=== PATIENT | male | born 1950 | race Caucasian/White ===

== ENCOUNTER 2017-04-28 13:30 | Emergency (ER) | payer BC, OTHER ==
--- NOTE | 2017-04-28 14:09 | EDM.PDOC ---
ED HPI GENERAL MEDICAL PROBLEM - General Chief Complaint: General Stated Complaint: FALL Time Seen by Provider: 04/28/17 14:02 Source of Information: Reports: Patient History Limitations: Reports: No Limitations - History of Present Illness INITIAL COMMENTS - FREE TEXT/NARRATIVE: History of present illness: 66-year-old male presenting status post mechanical fall. Patient indicates he was stepping up onto a curb and miscalculated last night after late meeting. EKG is probably too tired and just didn't see the height of the curb tripped and had blunt force trauma to his left side of head, predominantly at the brow bone, left shoulder, as well as the left hip. Review of systems: As per history of present illness and below otherwise all systems reviewed and negative. Past medical history: As per history of present illness and as reviewed below otherwise noncontributory. Surgical history: As per history of present illness and as reviewed below otherwise noncontributory. Social history: No reported history of drug or alcohol abuse. Family history: As per history of present illness and as reviewed below otherwise noncontributory. Physical exam: HEENT: Circumorbital ecchymosis with a laceration to left eyebrow with a blood clot. Laceration approximately 2 cm unable to determine secondary to oversized blood clot. Due to age of laceration and artery well established clot will allow to heal without intervention. normocephalic, pupils reactive, negative for conjunctival pallor or scleral icterus, mucous membranes moist, throat clear , neck supple, nontender, trachea midline. Lungs: Clear to auscultation, breath sounds equal bilaterally, chest nontender. Heart: S1S2, regular, negative for clicks, rubs, or JVD. Abdomen: Soft, nondistended, nontender. Negative for masses or hepatosplenomegaly. Negative for costovertebral tenderness. Pelvis: Stable nontender. Genitourinary: Deferred. Rectal: Deferred. Extremities: Atraumatic, negative for cords or calf pain. Neurovascular unremarkable. Neuro: Awake, alert, oriented. Cranial nerves II through XII unremarkable. Cerebellum unremarkable. Motor and sensory unremarkable throughout. Exam nonfocal. Radiographic studies all negative for acute trauma Diagnostics: [CT of head, x-ray of left shoulder and left hip] Therapeutics: [] Impression: [Contusion, bruising] Plan: [Follow-up with PCP alternate ice and heat] Definitive disposition and diagnosis as appropriate pending reevaluation and review of above. left shoulder Pain Score (Numeric/FACES): 8 left face Pain Score (Numeric/FACES): 5 - Related Data Allergies Allergy/AdvReac Type Severity Reaction Status Date / Time No Known Allergies Allergy Verified 04/28/17 14:02 Home Meds: Home Meds Budesonide/Formoterol [Symbicort 160-4.5 Mcg Inhaler] 10.2 gm IH BID 12/04/14 [ History] Past Medical History HEENT History: Reports: Allergic Rhinitis Respiratory History: Reports: Asthma Gastrointestinal History: Reports: None - Infectious Disease History Infectious Disease History: Reports: Shingles - Past Surgical History GI Surgical History: Reports: Hernia, Abdominal Social & Family History - Family History Family Medical History: Noncontributory - Tobacco Use Smoking Status *Q: Never Smoker Second Hand Smoke Exposure: No - Caffeine Use Caffeine Use: Reports: Coffee Other Caffeine Use: 2 cups per day - Alcohol Use Days Per Week of Alcohol Use: 0 - Recreational Drug Use Recreational Drug Use: No ED ROS GENERAL - Review of Systems Review Of Systems: See Below (The history of present illness) ED EXAM, GENERAL - Physical Exam Exam: See Below (See history of present illness) Course - Vital Signs Last Recorded V/S: Last Vital Signs Temp 36.6 C 04/28/17 14:00 Pulse 113 H 04/28/17 14:00 Resp 18 04/28/17 14:00 BP 177/98 H 04/28/17 14:00 Pulse Ox 95 04/28/17 14:00 - Orders/Labs/Meds Orders: Active Orders 24 hr Category Date Time Status Head wo Cont [CT] Stat Exams 04/28/17 14:02 Taken Hip Min 2V or 3V w Pelvis Lt [CR] Stat Exams 04/28/17 14:02 Taken Shoulder Comp Lt [CR] Stat Exams 04/28/17 14:02 Taken Departure - Departure Time of Disposition: 15:17 Disposition: Home, Self-Care 01 Condition: Good Clinical Impression: Contusion of eye, Contusion - Discharge Information Additional Instructions: The following information is given to patients seen in the emergency department who are being discharged to home. This information is to outline your options for follow-up care. We provide all patients seen in our emergency department with a follow-up referral. The need for follow-up, as well as the timing and circumstances, are variable depending upon the specifics of your emergency department visit. If you don't have a primary care physician on staff, we will provide you with a referral. We always advise you to contact your personal physician following an emergency department visit to inform them of the circumstance of the visit and for follow-up with them and/or the need for any referrals to a consulting specialist. The emergency department will also refer you to a specialist when appropriate. This referral assures that you have the opportunity for follow-up care with a specialist. All of these measure are taken in an effort to provide you with optimal care, which includes your follow-up. Under all circumstances we always encourage you to contact your private physician who remains a resource for coordinating your care. When calling for follow-up care, please make the office aware that this follow-up is from your recent emergency room visit. If for any reason you are refused follow-up, please contact the [facility] Emergency Department at and asked to speak to the emergency department charge nurse. Take medication as directed May alternate ice and heat to sore areas Ice specifically to eye Follow-up with PCP 1-2 days Return to ED as needed as discussed - My Orders Last 24 Hours: My Active Orders 04/28/17 14:02 Head wo Cont [CT] Stat Hip Min 2V or 3V w Pelvis Lt [CR] Stat Shoulder Comp Lt [CR] Stat - Assessment/Plan Last 24 Hours: My Active Orders 04/28/17 14:02 Head wo Cont [CT] Stat Hip Min 2V or 3V w Pelvis Lt [CR] Stat Shoulder Comp Lt [CR] Stat
[2017-04-28 16:28] VITALS: BP 169/90
--- NOTE | 2017-04-30 10:41 | CT ---
EXAM DATE: 04/28/17 PATIENT'S AGE: 66 Patient: CRYSTAL BARLOW Facility: [place], [place] Site . Site : 1950 Study: CT Head WO CONT [id number]/5/[id number] 2:42:04 PM Ordering Physician: Doctor Polanco Final Report: HISTORY: Fall. Technique: Unenhanced head CT with coronal and sagittal reformations. Comparison: None. Findings: There is no intracranial hemorrhage. No edema is seen. The ventricles are normal in size and position. The mart-white matter differentiation is normal. Air-fluid level is seen in the right maxillary sinus. There is mucous membrane thickening and possible small amount of fluid in the left maxillary sinus. Soft tissue opacification is seen in multiple ethmoid air cells and the sphenoid. Frontal sinuses are normally aerated. No fracture is identified. Impression: 1. Negative unenhanced CT of the brain. 2. There is an air-fluid level in the right maxillary sinus and possibly small amount of fluid in the left. Fluid density is also seen in ethmoid and sphenoid sinuses. This could be related to trauma with hemorrhage although sinusitis is possible. No fracture is seen. Please note that all CT scans at this facility use dose modulation, iterative reconstruction, and/or weight-based dosing when appropriate to reduce radiation dose to as low as reasonably achievable. Dictated by Patrick Lewis MD @ Apr 28 2017 2:56PM (Electronic Signature) Report Signed by Proxy. JOELLE
--- NOTE | 2017-04-30 10:42 | CR ---
EXAM DATE: 04/28/17 PATIENT'S AGE: 66 Patient: CRYSTAL BARLOW Facility: [place], [place] Site . Site : 1950 Study: XRay Shoulder [id number]/5/2017 2:51:19 PM Ordering Physician: Doctor Polanco Final Report: HISTORY: Fall. Technique: Two views left shoulder. Comparison: None. Findings: There is no acute fracture. The acromioclavicular and glenohumeral joints are maintained. Impression: Negative exam of the left shoulder. Dictated by Patrick Lewis MD @ Apr 28 2017 3:03PM (Electronic Signature) Report Signed by Proxy. JOELLE
--- NOTE | 2017-04-30 10:43 | CR ---
EXAM DATE: 04/28/17 PATIENT'S AGE: 66 Patient: CRYSTAL BARLOW Facility: [place], [place] Site . Site : 1950 Study: XRay Hip w/ pelvis [id number]/5/2017 2:51:50 PM Ordering Physician: Doctor Polanco Final Report: HISTORY: Fall. Technique: AP pelvis with AP and frog-leg lateral left hip. Comparison: None. Findings: No acute pelvic or hip fracture is seen. Hip mild degenerative change is seen in the right hip. The left hip joint is preserved. SI joints are unremarkable. Symphysis pubis is maintained. Impression: No acute pelvic or left hip fracture. Dictated by Patrick Lewis MD @ Apr 28 2017 3:07PM (Electronic Signature) Report Signed by Proxy. JOELLE
== END 2017-04-28 15:38 | disposition home or self-care (01) ==
LOC: MW.ED 13:30
DX: S01.112A Laceration without foreign body of left eyelid and periocular area, initial encounter (principal); S40.012A Contusion of left shoulder, initial encounter; J45.909 Unspecified asthma, uncomplicated; W19.XXXA Unspecified fall, initial encounter
CPT/HCPCS: 70450; 70450-26; 73030-26-LT; 73030-LT; 73502-26-LT; 73502-LT; 99282; 99284-25

== ENCOUNTER 2020-07-30 10:22 | Emergency (ER) | payer MEDICARE, BC ==
[2020-07-30] MEDS ORDERED: LORazepam 2 MG/ML SDV IVPUSH ONE (10:23)
[2020-07-30] MEDS ORDERED: Sodium Chloride 0.9% 2.5 ML Syringe FLUSH PRN (10:23)
[2020-07-30] MEDS ORDERED: Sodium Chloride 0.9% 10 ML Syringe FLUSH PRN (10:23)
[2020-07-30] MEDS ORDERED: Sodium Chloride 0.9% 1,000 ML IV ONE (10:23)
--- NOTE | 2020-07-30 10:30 | EDM.PDOC ---
ED HPI GENERAL MEDICAL PROBLEM - General Chief Complaint: Respiratory Problem Stated Complaint: EMS ARRIVAL Time Seen by Provider: 07/30/20 10:23 Source of Information: Reports: Patient, EMS History Limitations: Reports: No Limitations - History of Present Illness INITIAL COMMENTS - FREE TEXT/NARRATIVE: History of present illness: [Patient is 70-year-old male who was tested positive for Covid 2 days ago, he has had symptoms now for about 3 days. States that this morning he had worsening shortness of breath and noticed that he was hypertensive at home. He has a history of COPD and hypertension. He denies chest pain. He has been using Mucinex and Tylenol and other oxvs-npl-gnhkkue remedies to help with his symptoms at home. Denies vomiting or diarrhea. Denies blurry vision or headache. No other complaints at this time. Review of systems: As per history of present illness and below otherwise all systems reviewed and negative. Past medical history: As per history of present illness and as reviewed below otherwise noncontributory. Surgical history: As per history of present illness and as reviewed below otherwise noncontributory. Social history: No reported history of drug or alcohol abuse. Family history: As per history of present illness and as reviewed below otherwise noncontributory. Physical exam: General: Awake, alert, anxious, A&O X3. HEENT: Atraumatic, normocephalic, pupils reactive, negative for conjunctival pallor or scleral icterus, mucous membranes moist, throat clear, neck supple, nontender, trachea midline. Lungs: Clear to auscultation, breath sounds equal bilaterally, chest nontender. tachypneic Heart: RRR, normal S1S2, no JVD. Abdomen: Soft, nondistended, nontender. Negative for masses or hepatosplenomegaly. Negative for costovertebral tenderness. Pelvis: Stable nontender. Genitourinary: Deferred. Rectal: Deferred. Extremities: Atraumatic, no edema, Neurovascular unremarkable. Neuro: Motor and sensory grossly intact throughout. Exam nonfocal. Diagnostics: [] Therapeutics: [] Impression: [] Plan: [] Definitive disposition and diagnosis as appropriate pending reevaluation and review of above. - Related Data Allergies Allergy/AdvReac Type Severity Reaction Status Date / Time No Known Allergies Allergy Verified 07/30/20 10:55 Home Meds: Home Meds Budesonide/Formoterol [Symbicort 160-4.5 Mcg Inhaler] 10.2 gm IH BID 12/04/14 [History] Anti Htn 07/30/20 [History] Past Medical History - Past Health History Medical/Surgical History: Denies Medical/Surgical History HEENT History: Reports: Allergic Rhinitis Respiratory History: Reports: Asthma Gastrointestinal History: Reports: None - Infectious Disease History Infectious Disease History: Reports: Shingles - Past Surgical History GI Surgical History: Reports: Hernia, Abdominal Social & Family History - Family History Family Medical History: Noncontributory - Caffeine Use Caffeine Use: Reports: Coffee Other Caffeine Use: 2 cups per day ED ROS GENERAL - Review of Systems Review Of Systems: Comprehensive ROS is negative, except as noted in HPI. ED EXAM, GENERAL - Physical Exam Exam: See Below (see h and p) #1 Interpretation EKG Date: 07/30/20 Time: 10:36 Rhythm: NSR Rate (Beats/Min): 78 Buckner: Normal P-Wave: Present QRS: Normal ST-T: Normal QT: Normal EKG Interpretation Comments: normal sinus Course - Vital Signs Text/Narrative:: Patient is feeling much better after getting some IV fluids along with a small dose of Ativan. On reevaluation he is breathing comfortably, not tachypneic, not hypoxic, chest x-ray is reassuring, labs are also reassuring, vital signs are stable. I believe he is appropriate for continued outpatient management of his previously diagnosed Covid. He has not required any supplemental oxygen here in the ED. Return precautions provided otherwise he was stable and well-appearing at discharge. Last Recorded V/S: Last Vital Signs Temp 35.6 C L 07/30/20 12:32 Pulse 87 07/30/20 12:32 Resp 16 07/30/20 12:32 BP 152/80 H 07/30/20 12:32 Pulse Ox 95 07/30/20 12:32 - Orders/Labs/Meds Orders: Active Orders 24 hr Category Date Time Status Saline Lock Insert [OM.PC] Stat Oth 07/30/20 10:23 Ordered Labs: Laboratory Tests 07/30/20 07/30/20 Range/Units 10:29 10:29 WBC 5.80 (4.0-11.0) K/uL RBC 5.50 (4.50-5.90) M/uL Hgb 17.6 H (13.0-17.0) g/dL Hct 50.9 H (38.0-50.0) % MCV 92.5 (80.0-98.0) fL MCH 32.0 (27.0-32.0) pg MCHC 34.6 (31.0-37.0) g/dL RDW Std Deviation 44.8 (28.0-62.0) fl RDW Coeff of Juanita 13 (11.0-15.0) % Plt Count 139 L (150-400) K/uL MPV 10.50 (7.40-12.00) fL Neut % (Auto) 38.1 L (48.0-80.0) % Lymph % (Auto) 45.9 H (16.0-40.0) % [place] % (Auto) 11.7 (0.0-15.0) % Eos % (Auto) 4.0 (0.0-7.0) % Baso % (Auto) 0.3 (0.0-1.5) % Neut # (Auto) 2.2 (1.4-5.7) K/uL Lymph # (Auto) 2.7 H (0.6-2.4) K/uL [place] # (Auto) 0.7 (0.0-0.8) K/uL Eos # (Auto) 0.2 (0.0-0.7) K/uL Baso # (Auto) 0.0 (0.0-0.1) K/uL Nucleated RBC % 0.0 /100WBC Nucleated RBCs # 0 K/uL Sodium 135 L (136-148) mmol/L Potassium 3.7 (3.5-5.1) mmol/L Chloride 98 (98-107) mmol/L Carbon Dioxide 24.2 (21.0-32.0) mmol/L BUN 12 (7.0-18.0) mg/dL Creatinine 1.2 (0.8-1.3) mg/dL Est Cr Clr Drug Dosing TNP Estimated GFR (MDRD) > 60.0 ml/min Glucose 138 H (74-106) mg/dL Calcium 8.7 (8.5-10.1) mg/dL Total Bilirubin 0.6 (0.2-1.0) mg/dL AST 37 (15-37) IU/L ALT 41 (14-63) IU/L Alkaline Phosphatase 65 (46-116) U/L Troponin I < 0.050 (0.000-0.056) ng/mL Total Protein 7.4 (6.4-8.2) g/dL Albumin 3.5 (3.4-5.0) g/dL Globulin 3.9 (2.6-4.0) g/dL Albumin/Globulin Ratio 0.9 (0.9-1.6) Meds: Medications Discontinued Medications Generic Name Dose Route Start Last Admin Trade Name Freq PRN Reason Stop Dose Admin Sodium Chloride 1,000 mls @ 999 mls/hr 07/30/20 10:23 07/30/20 11:01 Normal Saline IV 07/30/20 11:23 999 mls/hr .Bolus ONE Administration Lorazepam 0.5 mg 07/30/20 10:23 07/30/20 11:01 Ativan IVPUSH 07/30/20 10:24 0.5 mg ONETIME ONE Administration Sodium Chloride 10 ml 07/30/20 10:23 Saline Flush FLUSH ASDIRECTED PRN Keep Vein Open Sodium Chloride 2.5 ml 07/30/20 10:23 Saline Flush FLUSH ASDIRECTED PRN Keep Vein Open Departure - Departure Time of Disposition: 12:24 Disposition: Home, Self-Care 01 Condition: Good Clinical Impression: History of 2019 novel coronavirus disease (COVID-19), Dyspnea, Anxiety - Discharge Information Instructions: Shortness of Breath, Adult, [id number] Referrals: Henry Eduardo MD [Primary Care Provider] - Forms: ED Department Discharge Additional Instructions: Continue to isolate at home. Follow-up with primary care doctor. Take all medications as previously prescribed. Return to the ER with any new or worsening symptoms. The following information is given to patients seen in the emergency department who are being discharged to home. This information is to outline your options for follow-up care. We provide all patients seen in our emergency department with a follow-up referral. The need for follow-up, as well as the timing and circumstances, are variable depending upon the specifics of your emergency department visit. If you don't have a primary care physician on staff, we will provide you with a referral. We always advise you to contact your personal physician following an emergency department visit to inform them of the circumstance of the visit and for follow-up with them and/or the need for any referrals to a consulting specialist. The emergency department will also refer you to a specialist when appropriate. This referral assures that you have the opportunity for follow-up care with a specialist. All of these measure are taken in an effort to provide you with optimal care, which includes your follow-up. Under all circumstances we always encourage you to contact your private physician who remains a resource for coordinating your care. When calling for follow-up care, please make the office aware that this follow-up is from your recent emergency room visit. If for any reason you are refused follow-up, please contact the [facility] Emergency Department at and asked to speak to the emergency department charge nurse. Sepsis Event Note (ED) - Focused Exam Vital Signs: Vital Signs Temp Pulse Resp BP Pulse Ox 07/30/20 12:32 35.6 C L 87 16 152/80 H 95 07/30/20 10:23 35.7 C L 84 21 H 151/96 H 99 - My Orders Last 24 Hours: My Active Orders 07/30/20 10:23 Saline Lock Insert [OM.PC] Stat - Assessment/Plan Last 24 Hours: My Active Orders 07/30/20 10:23 Saline Lock Insert [OM.PC] Stat
[2020-07-30 11:08] LABS: BLOOD UREA NITROGEN,BUN 12 mg/dL (7.0-18.0); CARBON DIOXIDE,CO2 24.2 mmol/L (21.0-32.0); CHLORIDE,CL 98 mmol/L (98-107); GLUCOSE RANDOM 138 mg/dL (74-106); POTASSIUM,K 3.7 mmol/L (3.5-5.1); SODIUM,NA 135 mmol/L (136-148)
--- NOTE | 2020-07-30 12:15 | CR ---
Indication: History of jones virus infection Comparison: Two-view chest December 04, 2014 Technique: Single AP view chest Findings: There is hyperinflation and chronic interstitial change. There is no focal consolidation, effusion, or pneumothorax. The cardiac silhouette is mildly prominent with a tortuous thoracic aorta. The bony thorax is grossly intact. Impression: Stable hyperinflation and chronic interstitial changes without evidence of dense consolidation. Dictated by Khris Goode MD @ Jul 30 2020 12:09PM Signed by Dr. Khris Goode @ Jul 30 2020 12:12PM
[2020-07-30 13:31] VITALS: BP 152/80; PULSE 87
== END 2020-07-30 12:32 | disposition home or self-care (01) ==
LOC: MW.ED 10:22
DX: U07.1 COVID-19 (principal); F41.9 Anxiety disorder, unspecified; J45.909 Unspecified asthma, uncomplicated; I10 Essential (primary) hypertension
CPT/HCPCS: 36415; 71045; 80053; 84484; 85025; 93005; 96374; 99285; J2060; J7030; 93010; 99283

== ENCOUNTER 2021-07-26 08:23 | Day surgery (SDC) | payer BC, MEDICARE ==
[~2021-07-26 08:23] MED LIST: Lactated Ringers 1,000 ML IV SCH; Sodium Chloride 0.9% 10 ML SDV IV PRN; Sodium Chloride 0.9% 10 ML Syringe FLUSH PRN; Sodium Chloride 0.9% 2.5 ML Syringe FLUSH PRN
--- NOTE | 2021-07-26 09:23 | PCM.PREANE ---
Preanesthetic Assessment - Procedure Proposed Procedure: Colonoscopy - Anesthesia/Transfusion/Family Hx Anesthesia History: Prior Anesthesia Without Reaction Family History of Anesthesia Reaction: No Transfusion History: No Prior Transfusion(s) - Review of Systems General: No Symptoms Pulmonary: No Symptoms (Quit smoking x 35 yrs) Cardiovascular: No Symptoms (HTN) Gastrointestinal: No Symptoms (GERD- diet controlled) Neurological: No Symptoms Other: Reports: None - Physical Assessment NPO Status Date: 07/24/21 NPO Status Time: 18:00 (Solids, >8 Hrs Liq) Height: 5 ft 9 in Weight: 87.997 kg ASA Class: 2 Mental Status: Alert & Oriented x3 Airway Class: Mallampati = 3 Dentition: Reports: Normal Dentition Thyro-Mental Finger Breadths: 3 Mouth Opening Finger Breadths: 3 ROM/Head Extension: Full Lungs: Clear to Auscultation, Normal Respiratory Effort Cardiovascular: Regular Rate, Regular Rhythm - Allergies Allergies/Adverse Reactions: Allergies Allergy/AdvReac Type Severity Reaction Status Date / Time No Known Allergies Allergy Verified 07/20/21 11:04 - Acknowledgements Anesthesia Type Planned: General Anesthesia Pt an Appropriate Candidate for the Planned Anesthesia: Yes Alternatives and Risks of Anesthesia Discussed w Pt/Guardian: Yes Pt/Guardian Understands and Agrees with Anesthesia Plan: Yes PreAnesthesia Questionnaire - Past Health History Medical/Surgical History: Denies Medical/Surgical History HEENT History: Reports: Hard of Hearing Other HEENT History: wears glasses, has hearing aides ordered Cardiovascular History: Reports: Hypertension Respiratory History: Reports: Asthma Other Respiratory History: uses inhaler occasionally at bedtime Gastrointestinal History: Reports: Other (See Below) Other Gastrointestinal History: current rectal bleeding Genitourinary History: Reports: None Musculoskeletal History: Reports: Back Pain, Chronic, Fracture Other Musculoskeletal History: lumbar degenerative disc disease, hx of fx humerus, wrist and fingers Neurological History: Reports: None Psychiatric History: Reports: None Endocrine/Metabolic History: Reports: None Hematologic History: Reports: None Immunologic History: Reports: None Oncologic (Cancer) History: Reports: Basal Cell Carcinoma Other Oncologic History: removed from nose Dermatologic History: Reports: None - Infectious Disease History Infectious Disease History: Reports: Shingles - Past Surgical History Head Surgeries/Procedures: Reports: None HEENT Surgical History: Reports: Naso-Sinus Surgery Respiratory Surgical History: Reports: None GI Surgical History: Reports: Other (See Below) Other GI Surgeries/Procedures: Umbilical hernia repair Male Surgical History: Reports: None Endocrine Surgical History: Reports: None Neurological Surgical History: Reports: None Musculoskeletal Surgical History: Reports: None Oncologic Surgical History: Reports: None - SUBSTANCE USE Tobacco Use Status *Q: Former Tobacco User Tobacco Use Within Last Twelve Months: No Recreational Drug Use History: No - HOME MEDS Home Medications: Home Meds Budesonide/Formoterol [Symbicort 160-4.5 Mcg Inhaler] 2 puff INH BID PRN 12/04/14 [History] Ascorbic Acid [Vitamin C] 100 mg PO DAILY 07/20/21 [History] Cyanocobalamin (Vitamin B12) [Vitamin B12] 100 mcg PO DAILY 07/20/21 [History] Enalapril [Vasotec] 10 mg PO QAM 07/20/21 [History] Multivitamin 1 tab PO DAILY 07/20/21 [History] - CURRENT (IN HOUSE) MEDS Current Meds: Current Medications Lactated Ringer's (Ringers, Lactated) 1,000 mls @ 125 mls/hr IV ASDIRECTED DAVID Sodium Chloride (Sodium Chloride 0.9% 10 Ml Syringe) 10 ml FLUSH ASDIRECTED PRN PRN Reason: Keep Vein Open Sodium Chloride (Sodium Chloride 0.9% 2.5 Ml Syringe) 2.5 ml FLUSH ASDIRECTED PRN PRN Reason: Keep Vein Open Sodium Chloride (Sodium Chloride 0.9% 10 Ml Syringe) 10 ml FLUSH ASDIRECTED PRN PRN Reason: Keep Vein Open Sodium Chloride (Sodium Chloride 0.9% 2.5 Ml Syringe) 2.5 ml FLUSH ASDIRECTED PRN PRN Reason: Keep Vein Open Sodium Chloride (Sodium Chloride 0.9% 10 Ml Sdv) 10 ml IV ASDIRECTED PRN PRN Reason: IV Use
[2021-07-26] MEDS ORDERED: Propofol 200 MG/20 ML SDV ONE (10:08)
[2021-07-26] MEDS ORDERED: fentaNYL 100 MCG/2 ML SDV ONE (10:08)
--- NOTE | 2021-07-26 10:46 | PCM.POSTAN ---
POST ANESTHESIA ASSESSMENT - MENTAL STATUS Mental Status: Somnolent - VITAL SIGNS Vital Signs: Last Vital Signs Temp 98.8 F 07/26/21 10:41 Pulse 87 07/26/21 10:41 Resp 13 07/26/21 10:41 BP 129/79 07/26/21 10:41 Pulse Ox 96 07/26/21 10:41 - RESPIRATORY Respiratory Status: Respiratory Rate WNL, Airway Patent, O2 Saturation Stable, Supplemental Oxygen - CARDIOVASCULAR CV Status: Pulse Rate WNL, Blood Pressure Stable - GASTROINTESTINAL GI Status: No Symptoms - PAIN Free Text/Narrative:: Resting comfortably - POST OP HYDRATION Hydration Status: Adequate & Stable
--- NOTE | 2021-07-26 11:00 | PCM48HPAN ---
Post Anesthesia Note - EVALUATION WITHIN 48HRS OF ANESTHETIC Vital Signs in Normal Range: Yes Patient Participated in Evaluation: Yes Respiratory Function Stable: Yes Airway Patent: Yes Cardiovascular Function Stable: Yes Hydration Status Stable: Yes Pain Control Satisfactory: Yes Nausea and Vomiting Control Satisfactory: Yes Mental Status Recovered: Yes Vital Signs: Last Vital Signs Temp 98.8 F 07/26/21 10:41 Pulse 90 07/26/21 10:56 Resp 16 07/26/21 10:56 BP 155/93 H 07/26/21 10:56 Pulse Ox 94 L 07/26/21 10:56 - COMMENTS/OBSERVATIONS Free Text/Narrative:: Pt doing well post-op. VSS. No apparent anesthetic complications. Dr. Roge العراقي
--- NOTE | 2021-07-26 11:01 | PCM.OPNOTE ---
- General Post-Op/Procedure Note Date of Surgery/Procedure: 07/26/21 Operative Procedure(s): Diagnostic colonoscopy Findings: Occlusive and friable mass 10 cm from the anus in the rectum. This was circumferential and I was unable to transverse past the area. Pre Op Diagnosis: Hematochezia Post-Op Diagnosis: Rectal mass Anesthesia Technique: MAC Primary Surgeon: Sheyla Dolan Condition: Good Free Text/Narrative:: Intake & Output 07/25/21 07/26/21 07/26/21 22:59 06:59 14:59 Intake Total 750 Balance 750
[2021-07-26 13:26] VITALS: BP 158/89; PULSE 87
--- NOTE | 2021-07-27 17:55 | OR ---
SURGEON: SHEYLA DOLAN MD DATE OF PROCEDURE: 07/26/2021 PREOPERATIVE DIAGNOSIS: Bright red bleeding per rectum. POSTOPERATIVE DIAGNOSIS: Rectal mass. PROCEDURE PERFORMED: Diagnostic colonoscopy. PRIMARY SURGEON: Sheyla Dolan MD ANESTHESIA: MAC. INSTRUMENT USED: Olympus colonoscope. EXTENT OF THE EXAM: 10 cm from the anal verge. PREPARATION: Good. LIMITATIONS: Occlusive lesion in the rectum. INDICATIONS: The patient is a 71-year-old male who presented to my clinic with ongoing bright red bleeding per rectum despite conservative management. I explained the need for a diagnostic colonoscopy. I explained the procedure, expected perioperative course, and the risks. He verbalized understanding and wishes to proceed. PROCEDURE IN DETAIL: The patient was brought in to the endoscopy suite and placed in a left lateral decubitus position. A time-out was completed verifying the patient's name, age, date of , allergies, and procedure to be performed. Monitored anesthesia care was induced and continuous oxygen was provided via nasal cannula throughout the procedure. After adequate sedation was achieved, a digital rectal exam was performed. My initial digital rectal exam was normal. A well-lubricated endoscope was placed in the patient's rectum and I attempted to advance this under direct visualization. Just beyond the rectal vault, the patient was noted to have an irregular-appearing and friable lesion. With any manipulation, the lesion bled. It was circumferential and caused narrowing within the lumen of the rectum. I was unable to pass my scope through this area. Multiple biopsies and photographs were taken. The biopsies were taken using a cold biopsy forceps and sent to Pathology labeled as rectal mass. Once I had ensured that hemostasis was achieved, the scope was pulled back into the rectal vault. A photograph was taken of the rectum as well as with the scope retroflexed within the rectum. The remainder appeared grossly normal. The scope was removed and I performed a more aggressive digital rectal exam. At the very tip of my finger I could feel the irregularity. The mass was located approximately 10 cm from the anal canal opening. The procedure was then terminated. The patient tolerated it well and was taken to PACU in stable condition. ENDOSCOPIC DIAGNOSIS: Rectal mass. RECOMMENDATIONS: I visited with the patient and his in the postoperative area. A CEA was drawn and sent. We will visit with the patient regarding his pathology results when they become available and the next steps in treatment. CALOS ROCA /[id number]
== END 2021-07-26 11:38 | disposition home or self-care (01) ==
LOC: MW.SDS 08:23
PROVIDERS: ATTEND Surgery
DX: C20 Malignant neoplasm of rectum (principal); I10 Essential (primary) hypertension; J45.909 Unspecified asthma, uncomplicated; Z79.899 Other long term (current) drug therapy; Z98.890 Other specified postprocedural states; Z87.891 Personal history of nicotine dependence
CPT/HCPCS: 36415; 45380; 82378; J2704; J3010; J7120; 00811; 99100